=== PATIENT | male | born 1950 | race Caucasian/White ===

== ENCOUNTER 2024-11-28 07:44 | Outpatient (NON) | payer MEDICARE, SELFPAY ==
[2024-11-28 15:16] LABS: Hematocrit 28.2 % (37.0-46.0); Hemoglobin 8.7 g/dL (12.4-15.3); Mean Corpuscular HGB Conc 30.9 g/dL (32-36); Mean Corpuscular Hemoglobin 31.0 pg (27.0-31.0); Mean Corpuscular Volume 100.4 fL (78.0-102.0); Platelet Count Result 140 K/mm3 (150-420); Red Blood Count 2.81 M/mm3 (4.70-6.10); White Blood Count 9.9 K/mm3 (4.8-10.8)
[2024-11-28 15:25] LABS: Alanine Aminotransferase 17 U/L (6-50); Albumin Level 2.2 g/dL (3.5-5.1); Alkaline Phosphatase 78 U/L (38-126); Anion Gap 4 mmol/L (4-12); Aspartate Amino Transferase 12 U/L (17-59); Bilirubin,Total 0.6 mg/dL (0.2-1.3); Blood Urea Nitrogen 14 mg/dL (9-20); Calcium 8.7 mg/dL (8.4-10.2); Carbon Dioxide 24 mmol/L (22-30); Chloride 109 mmol/L (98-107); Estimated Glomerular Filt Rate > 60; Glucose 95 mg/dL (65-110); Osmolality Calculated 284 mOsm/kg (285-295); Potassium 3.1 mmol/L (3.4-5.0); Sodium 137 mmol/L (137-145); Total Protein 4.3 g/dL (6.3-8.2)
== END 2024-11-28 07:45 | disposition home or self-care (01) ==
LOC: CHSLAB 07:50
PROVIDERS: Visit Provider Internal Medicine
DX: I10 Essential (primary) hypertension (principal); J18.9 Pneumonia, unspecified organism; I71.40 Abdominal aortic aneurysm, without rupture, unspecified
CPT/HCPCS: 36415; 80053; 85027